=== PATIENT | female | born 1970 | race Caucasian/White ===

== ENCOUNTER → 2017-08-21 | Outpatient (CLI) | payer OTHER ==
--- NOTE | 2017-08-22 02:50 | MR ---
EXAMINATION TYPE: MR knee LT wo con DATE OF EXAM: 08/21/2017 COMPARISON: NONE HISTORY: Left knee pain. TECHNIQUE: Multiplanar, multisequence imaging of the left knee is performed without IV contrast. FINDINGS: There is a [id number] knee joint effusion. The anterior and posterior cruciate ligaments are in tact. There is a 2 cm area of increased signal at the attachment of the posterior cruciate ligament o n the posterior tibia consistent with degenerative cyst formation. The collateral ligaments appear in tact. Joint spaces are fairly normal. There is no evidence of a fracture. There is minor spurring of the lateral femoral and tibial condyles. There is mild horizontal increased signal in the posterior h orn of the medial meniscus without extension to the articular surface. The other menisci appear fairl y normal. CONCLUSION: Moderate knee joint effusion. Intrasubstance tear of the posterior horn medial meniscus. No evidence of ligamentous tear. There is degenerative cyst formation at the base of the posterior tibial spine. IMPRESSION:
== END ==
LOC: MERGE 17:40 → RADMRIMAIN 17:40
PROVIDERS: ATTEND Orthopaedic Surgery
DX: S83.242A Other tear of medial meniscus, current injury, left knee, initial encounter (principal)

== ENCOUNTER → 2017-09-10 | Outpatient (CLI) | payer OTHER ==
[2017-09-10 11:44] LABS: Basophils # (A) 0.1 k/uL (0-0.2); Basophils % (A) 1 %; Eosinophils # (A) 0.2 k/uL (0-0.7); Eosinophils % (A) 2 %; HCT 37.8 % (34.0-46.0); HGB 12.4 gm/dL (11.4-16.0); Lymphocytes # (A) 2.1 k/uL (1.0-4.8); Lymphocytes % (A) 24 %; MCH 28.8 pg (25.0-35.0); MCHC 32.8 g/dL (31.0-37.0); MCV 87.7 fL (80.0-100.0); Monocytes # (A) 0.4 k/uL (0-1.0); Monocytes % (A) 5 %; Neutrophils % (A) 67 %; Platelet Count 265 k/uL (150-450); RBC 4.31 m/uL (3.80-5.40); RDW 13.2 % (11.5-15.5); WBC 8.9 k/uL (3.8-10.6)
[2017-09-10 12:04] LABS: Potassium 3.9 mmol/L (3.5-5.1)
== END | disposition home or self-care (01) ==
LOC: LABPAT 10:56
PROVIDERS: ATTEND Orthopaedic Surgery
DX: Z01.812 Encounter for preprocedural laboratory examination (principal); Z01.818 Encounter for other preprocedural examination; M23.92 Unspecified internal derangement of left knee
CPT/HCPCS: 36415; 80051; 85025; 93005

== ENCOUNTER 2017-09-26 10:34 | Day surgery (SDC) | payer OTHER ==
[2017-09-20 11:49] VITALS: BMI 34.2
--- NOTE | 2017-09-25 16:18 | HP ---
HISTORY AND PHYSICAL DATE OF SURGERY: 09/26/2017 Lawanda Mantlila is a 47-year-old patient seen with progressive left knee pain. We discussed treatment options. She elected to proceed with arthroscopy. Consent was obtained. PAST MEDICAL HISTORY: Noncontributory. PAST SURGICAL HISTORY: Left hand surgery. DAILY MEDICATIONS: Ibuprofen as needed. ALLERGIES: XYLOCAINE AND PENICILLIN. SOCIAL HISTORY: Patient denies tobacco use. PHYSICAL EVALUATION OF LEFT KNEE: Range of motion 0 to 115 degrees. Mild effusion. Tenderness, medial and lateral joint line. Positive medial Gurwinder's. Positive lateral Gurwinder's. Crepitus in patellofemoral joint with range of motion. Ligaments stable. Hip rotation without pain. Distal neurovascular exam intact. RADIOGRAPHS: Radiographs of the left knee revealed mild medial and lateral compartment osteoarthritis as well as moderate patellofemoral compartment osteoarthritis. An MRI of the left knee revealed medial meniscal tear, osteoarthritis and joint effusion. IMPRESSION: Internal derangement of left knee with meniscal tear. PLAN: Left knee arthroscopy with partial meniscectomy and debridement. MMODL / IJN: [id number] /
[~2017-09-26 10:34] MED LIST: DEXAMETHASONE SOD PHOSPHATE 10 MG/ML 1 ML VIAL IV ONE; LACTATED RINGERS 1,000 ML IV SCH; ONDANSETRON 4 MG/2 ML VIAL IVP ONE
[2017-09-26] MEDS ORDERED: LIDOCAINE 1% 20 ML VIAL (10MG/ML) FOR IV START INTRADERMA ONE (12:04)
[2017-09-26] MEDS ORDERED: SUCCINYLCHOLINE CHLORIDE 100 MG/5 ML SYR IV ONE (12:34)
[2017-09-26] MEDS ORDERED: LIDOCAINE 1% INJ 10MG/ML (20 ML MDV) ONE (12:34)
[2017-09-26] MEDS ORDERED: PROPOFOL 10 MG/ML 20 ML VIAL IV ONE (12:34)
[2017-09-26] MEDS ORDERED: fentaNYL (PF) 50 MCG/ML 2 ML AMP ONE (12:34)
[2017-09-26] MEDS ORDERED: HYDROmorphone (PF) 1 MG/ML ONE (12:34)
[2017-09-26] MEDS ORDERED: MIDAZOLAM 2 MG/2 ML VIAL ONE (12:34)
[2017-09-26] MEDS ORDERED: BUPIVACAINE (PF) 0.5% 30 ML VIAL SQ ONE ×2 (12:51→13:10)
--- NOTE | 2017-09-26 13:28 | P.OP ---
Date of Procedure: 09/26/17 Preoperative Diagnosis: Internal derangement left knee Postoperative Diagnosis: 1. Tear medial and lateral meniscus left knee 2. 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 Grade 3/4 chondromalacia patella left knee 4. Grade 4 chondromalacia femoral sulcus left knee 5. Reactive synovitis medial and super patellar compartments left knee Procedure(s) Performed: 1. Arthroscopic partial medial and lateral meniscectomy left knee 2. Arthroscopic chondroplasty medial femoral condyle left knee 3. Arthroscopic chondroplasty patellofemoral joint left knee 4. Arthroscopic partial synovectomy medial and suprapatellar compartments left knee Implants: none Anesthesia: MARBELLAA, local Surgeon: Andry Henderson Estimated Blood Loss (ml): 8 Pathology: none sent Condition: stable Disposition: PACU Indications for Procedure: 47-year-old patient seen with progressive left knee pain. After treatment options were discussed, she elected to proceed with arthroscopy. Operative Findings: See description of procedure Description of Procedure: Patient was taken to the operative suite. Patient underwent a general anesthetic by the department of anesthesia. Patient was given preoperative antibiotics. The left lower extremity was placed in a well-padded arthroscopic leg rutledge. The left leg was prepped and draped in the normal sterile orthopedic fashion. A lateral parapatellar and suprapatellar incision was made. Trochars were inserted. Arthroscopy was initiated. Suprapatellar pouch revealed diffuse thick reactive synovitis. The patellofemoral joint appeared to articulate congruently. There was grade 3/4 chondromalacia of the patella with osteochondral tears and grade 4 chondromalacia of the medial femoral condyle with large areas of exposed bone present.. The scope was guided into the medial gutter. No loose bodies or plica were identified. The scope was then guided into the medial compartment. A medial parapatellar incision was made. Trocar inserted followed by probe. There was a radial tear involving the anterior horn of the medial meniscus as well as a radial tear involving the posterior horn of the medial meniscus. There was reactive synovitis anteriorly. There was an area of grade 1 chondromalacia medial femoral condyle small osteochondral tears present.. There was reactive synovitis anteriorly. I performed a partial medial meniscectomy getting down to stable tissue. I performed a chondroplasty of the medial femoral condyle. I performed a partial synovectomy. The residual meniscus was stable. The residual osteochondral surface of the medial femoral condyle was stable. Scope and probe were then guided into the intercondylar notch. Cruciates were identified, probed and found to be stable. The scope and probe were then guided into lateral compartment. There was a radial tear midbody lateral meniscus. Grade 1 chondromalacia changes lateral compartment with no osteochondral tears. No loose bodies or reactive synovitis. I performed a partial lateral meniscectomy down to stable tissue. The residual meniscus was probed and found to be stable. The scope was in guided back into the suprapatellar compartment. I introduced a motorized shaver into the suprapatellar compartment. I performed a chondroplasty of the patella gained down to stable tissue. I performed a partial synovectomy. The shaver was removed. I took one more look on the entire knee, no residual debris. Instruments were now removed from the joint. The joint was infiltrated with .25% Marcaine. Steri-Strips were applied to the portal sites. Sterile dressings were applied. The patient was placed into a JC hose. No tourniquet was utilized. The patient was awakened, transferred to a bed and taken to recovery stable satisfactory condition.
[2017-09-26 13:32] VITALS: TEMP 97.7
[2017-09-26 13:33] VITALS: RESP 16
[2017-09-26] MEDS: HYDROmorphone 0.5 MG/0.5 ML SYRINGE IVP PRN ×2 (13:47→13:53)
[2017-09-26] MEDS ORDERED: KETOROLAC 30 MG/ML 1 ML VIAL IVP ONE (14:05)
[2017-09-26] MEDS ORDERED: LACTATED RINGERS 1,000 ML IV ONE (14:20)
[2017-09-26] MEDS ORDERED: HYDROcodone/APAP 7.5-325MG 1 EACH TAB PO ONE (14:49)
[2017-09-26 14:54] VITALS: BP 151/86; PULSE 76
[2017-09-27] MEDS ORDERED: ceFAZolin IN SWFI 2 GM/20 ML SYRINGE IVP ONE (06:00)
== END 2017-09-26 15:16 | disposition home or self-care (01) ==
LOC: OR 10:34
PROVIDERS: ATTEND Orthopaedic Surgery
DX: S83.242A Other tear of medial meniscus, current injury, left knee, initial encounter (principal); S83.282A Other tear of lateral meniscus, current injury, left knee, initial encounter; X58.XXXA Exposure to other specified factors, initial encounter; M94.262 Chondromalacia, left knee; M22.42 Chondromalacia patellae, left knee; M65.862 Other synovitis and tenosynovitis, left lower leg; M17.12 Unilateral primary osteoarthritis, left knee; M25.462 Effusion, left knee; Z79.3 Long term (current) use of hormonal contraceptives; Z79.51 Long term (current) use of inhaled steroids; Z88.4 Allergy status to anesthetic agent; Z88.0 Allergy status to penicillin
CPT/HCPCS: 81025; 29880; J2250; J1100; J2405; J2001; J3010; J1885; J1170 ×2; J0330; J2704; J0690

== ENCOUNTER → 2018-07-25 | Outpatient (CLI) | payer OTHER ==
[2018-07-25 11:17] LABS: Basophils # (A) 0.1 k/uL (0-0.2); Basophils % (A) 1 %; Eosinophils # (A) 0.1 k/uL (0-0.7); Eosinophils % (A) 1 %; HCT 40.5 % (34.0-46.0); HGB 12.8 gm/dL (11.4-16.0); Lymphocytes # (A) 1.9 k/uL (1.0-4.8); Lymphocytes % (A) 17 %; MCH 27.6 pg (25.0-35.0); MCHC 31.7 g/dL (31.0-37.0); MCV 87.2 fL (80.0-100.0); Mean Platelet Volume 6.9; Monocytes # (A) 0.4 k/uL (0-1.0); Monocytes % (A) 4 %; Neutrophils # (A) 8.2 k/uL (1.3-7.7); Neutrophils % (A) 75 %; Platelet Count 272 k/uL (150-450); RBC 4.65 m/uL (3.80-5.40); RDW 13.4 % (11.5-15.5); WBC 10.9 k/uL (3.8-10.6)
[2018-07-25 16:50] LABS: Albumin 4.8 g/dL (3.80-4.90); Albumin/Globulin Ratio 2.18 (1.60-3.17); Calcium 9.7 mg/dL (8.7-10.3); Globulin 2.2 g/dL (1.6-3.3); Potassium 3.9 mmol/L (3.5-5.5); Total Bilirubin 0.5 mg/dL (0.3-1.2)
== END ==
LOC: LABWHC1 09:35
PROVIDERS: ATTEND Family Medicine
DX: E78.5 Hyperlipidemia, unspecified (principal)
CPT/HCPCS: 36415; 80053; 80061; 85025

== ENCOUNTER → 2018-09-20 | Outpatient (CLI) | payer OTHER ==
--- NOTE | 2018-09-21 17:03 | MR ---
EXAMINATION TYPE: MR lumbar spine wo con DATE OF EXAM: 09/20/2018 COMPARISON: NONE HISTORY: Low back pain, disc degeneration, and radiculopathy all per order. Low back pain causing claudette n and swelling into right leg per patient. TECHNIQUE: Multiplanar, multisequence imaging of the lumbar spine is performed without IV contrast. FINDINGS: Sagittal images of the lumbar spine show vertebral body heights and alignment to appear sat isfactory. Disc desiccation L4-L5 and L5-S1 levels with posterior disc herniations as present on sagi ttal images. The conus medullaris is normal in position and signal ending mid L1 level. Hemangioma a t the L4 vertebral body level noted sagittal image 9 with smaller hemangioma seen at posterior L3 minerva tebral body level. Axial images show the T12-L1 and L1-L2 levels appear within normal limits. Axial images at L2-L3 level show mild facet degenerative changes bilaterally with mild broad disc bul ge minimally effaces the anterior thecal sac. Axial images at the L3-L4 level are within normal limits. Axial images at L4-L5 level show annular tear with mild to moderate central disc protrusion effacing the anterior thecal sac on axial image 8. There is mild bilateral anterior inferior neural foraminal narrowing. Axial images at the L5-S1 level mild right greater than left facet degenerative changes. There is blanca tral disc protrusion without spinal canal is preserved. There is mild to moderate left greater than r ight bilateral neural foraminal narrowing noted. Few scattered diverticula are seen in the sigmoid colon left lower quadrant axial image 7 for referen ce. IMPRESSION: Some multilevel degenerative changes most prominent L4-L5 level as detailed above.
== END | disposition home or self-care (01) ==
LOC: RADMRIMAIN 12:30
PROVIDERS: ATTEND Orthopaedic Surgery Orthopaedic Surgery of the Spine
DX: M47.26 Other spondylosis with radiculopathy, lumbar region (principal)
CPT/HCPCS: 72148

== ENCOUNTER → 2018-12-27 | Outpatient (CLI) | payer OTHER ==
--- NOTE | 2018-12-27 17:15 | MR ---
EXAMINATION TYPE: MR cervical spine wo con DATE OF EXAM: 12/27/2018 COMPARISON: None HISTORY: Cervical myelopathy / Neck pain TECHNIQUE: Multiplanar, multisequence images of the cervical spine were acquired. Cervical vertebra have normal alignment. Posterior elements are intact. Disc spaces are fairly normal . Cervical spinal cord has normal signal pattern. There is no edema. Brainstem appears normal. There is no spinal stenosis. There are small posterior disc bulges at C5-6 and C6-7 without impingement on the spinal cord. There is no cervical paraspinal mass. Facet joints appear intact. IMPRESSION: Minor posterior disc bulging in the lower cervical spine. No spinal stenosis. Cervical spinal cord ap pears normal. No evidence of cord mass or cord edema.
== END | disposition home or self-care (01) ==
LOC: RADMRIMAIN 12:43
PROVIDERS: ATTEND Orthopaedic Surgery Orthopaedic Surgery of the Spine
DX: M50.022 Cervical disc disorder at C5-C6 level with myelopathy (principal); M54.16 Radiculopathy, lumbar region; M51.26 Other intervertebral disc displacement, lumbar region; M51.36 Other intervertebral disc degeneration, lumbar region
CPT/HCPCS: 72141

== ENCOUNTER → 2018-12-30 | Outpatient (CLI) | payer OTHER ==
--- NOTE | 2018-12-30 16:44 | US ---
EXAMINATION TYPE: US venous doppler duplex LE RT DATE OF EXAM: 12/30/2018 4:25 PM COMPARISON: NONE CLINICAL HISTORY: 48-year-old female I80.9 Phlebitis and thrombophlebitis of unspecified. Patient c/o right thigh swelling x months; walks 7 miles daily; spine surgery for herniated discs SIDE PERFORMED: Right TECHNIQUE: The lower extremity deep venous system is examined utilizing real time linear array sonog jay with graded compression, doppler sonography and color-flow sonography. FINDINGS: VESSELS IMAGED: Common Femoral Vein Deep Femoral Vein Greater Saphenous Vein * Femoral Vein Popliteal Vein Small Saphenous Vein * Proximal Calf Veins (* superficial vessels) Right Leg: Negative for DVT IMPRESSION: No evidence for DVT within the right lower extremity imaged from the groin to the upper calf.
== END | disposition home or self-care (01) ==
LOC: RADUSWWP 15:53
PROVIDERS: ATTEND Orthopaedic Surgery Orthopaedic Surgery of the Spine
DX: M79.661 Pain in right lower leg (principal); M25.561 Pain in right knee; M54.16 Radiculopathy, lumbar region; M47.12 Other spondylosis with myelopathy, cervical region

== ENCOUNTER → 2023-03-08 | Outpatient (CLI) | payer OTHER ==
[2023-03-08 19:01] LABS: HCT 38.5 % (37.2-46.3); HGB 12.3 g/dL (12.0-15.0); MCH 30.9 pg (27.0-32.0); MCHC 31.9 g/dL (32.0-37.0); MCV 96.7 FL (80.0-97.0); Mean Platelet Volume 10.1 FL (9.5-12.2); NRBC Per 100 WBC 0 X 10*3/uL (0.00-0.01); Platelet Count 270 X 10*3/uL (140-440); RBC 3.98 X 10*6/uL (4.10-5.20); RDW 13.5 % (11.5-14.5); WBC 6.03 X 10*3/uL (4.50-10.00)
[2023-03-08 19:02] LABS: Basophils # (A) 0.05 X 10*3/uL (0.00-0.10); Basophils % (A) 0.8 %; Eosinophils # (A) 0.23 X 10*3/uL (0.04-0.35); Eosinophils % (A) 3.8 %; Lymphocytes # (A) 1.94 X 10*3/uL (0.90-5.00); Lymphocytes % (A) 32.2 %; Monocytes # (A) 0.53 X 10*3/uL (0.20-1.00); Monocytes % (A) 8.8 %; Neutrophils # (A) 3.26 X 10*3/uL (1.80-7.70); Neutrophils % (A) 54.1 %
[2023-03-08 20:04] LABS: ALT 34 U/L (8-44); AST 31 U/L (13-35); Albumin 4.1 g/dL (3.8-4.9); Albumin/Globulin Ratio 1.86 Ratio (1.60-3.17); Alkaline Phosphatase 64 U/L (41-126); BUN/Creat Ratio 25.17 Ratio (12.00-20.00); Blood Urea Nitrogen 15.1 mg/dL (9.0-27.0); Calcium 9.2 mg/dL (8.7-10.3); Carbon Dioxide 23.6 mmol/L (21.6-31.8); Chloride 107 mmol/L (96-109); Chol/HDL Ratio 2.76 Ratio; Globulin 2.2 g/dL (1.6-3.3); Glucose 86 mg/dL (70-110); LDL Cholesterol,Calculated 108.3 mg/dL (0.0-131.0); Potassium 4.6 mmol/L (3.5-5.5); Sodium 140 mmol/L (135-145); Total Bilirubin 0.4 mg/dL (0.3-1.2); Total Protein 6.3 g/dL (6.2-8.2); VLDL Calculation 9.64 mg/dL (5.00-40.00)
== END | disposition home or self-care (01) ==
LOC: LABWHC1 10:37
PROVIDERS: ATTEND Family Medicine
DX: I10 Essential (primary) hypertension (principal)
CPT/HCPCS: 36415; 80053; 80061; 82306; 84443; 85025

== ENCOUNTER → 2023-03-18 | Outpatient (CLI) | payer OTHER ==
--- NOTE | 2023-03-19 21:21 | MM ---
Reason for Exam: Screening (asymptomatic). Last mammogram was performed 3 year(s) and 4 month(s) ago. Patient History: Menarche at age 13. Patient has no children. Hysterectomy at age 49. Risk Values: Cyndee 5 year model risk: 1.2%. NCI Lifetime model risk: 9.6%. Prior Study Comparison: 10/19/2016 Bilateral MG 3D screening mammo w/cad, [facility]. 02/07/2018 Bilateral MG 3D screening mammo w/cad, [facility]. 11/23/2019 Bilateral MG 3D screening mammo w/cad, [facility]. Tissue Density: The breast tissue is almost entirely fat. Findings: Analyzed By CAD. There is no suspicious group of microcalcifications or new suspicious mass in either breast. Overall Assessment: Negative, BI-RAD 1 Management: Screening Mammogram of both breasts in 1 year. . Patient should continue monthly self-breast exams. A clinical breast exam by your physician is recommended on an annual basis. This exam should not preclude additional follow-up of suspicious palpable abnormalities. Note on Cyndee scores and lifetime risk: 1. A Cyndee score greater than 3% is considered moderate risk. If this is the case, consider specialist referral to assess eligibility for a risk reducing agent. 2. If overall lifetime risk for the development of breast cancer is 20% or higher, the patient may qualify for future screening with alternating mammogram and breast MRI. Electronically signed and approved by: Alyssa Ennis M.D. Radiologist
== END | disposition home or self-care (01) ==
LOC: RADMAMWWP 15:31
PROVIDERS: ATTEND Family Medicine
DX: Z12.31 Encounter for screening mammogram for malignant neoplasm of breast (principal)
CPT/HCPCS: 77063; 77067

== ENCOUNTER → 2023-08-26 | Outpatient (CLI) | payer OTHER ==
[2023-08-26 12:31] LABS: African American GFR (CKD) >90 (>60 ml/min/1.73 sqM); Blood Urea Nitrogen 24 mg/dL (7-17); Non-African American GFR(CKD) >90 (>60 ml/min/1.73 sqM)
[2023-08-26 21:39] LABS: Follicle Stimulating Hormone 33.8 mIU/mL
--- NOTE | 2023-08-29 06:21 | CT ---
EXAMINATION TYPE: CT abdomen pelvis w con DATE OF EXAM: 08/26/2023 HISTORY: LLQ pain, hx of hysterectomy CT DLP: 1749mGycm Automated Exposure Control for Dose Reduction was Utilized. CONTRAST: CT scan of the abdomen and pelvis is performed with oral and with IV Contrast, patient injected with 100ml mL of Isovue 300. COMPARISON: None. FINDINGS: LUNG BASES: No significant abnormality is appreciated. LIVER/GB: Small 9 mm dependent gallstone axial image 22. Gallbladder shows no surrounding ill-defined fluid or fat stranding. No biliary dilatation. PANCREAS: No significant abnormality is seen. SPLEEN: No significant abnormality is seen. ADRENALS: No significant abnormality is seen. KIDNEYS: No significant abnormality is seen. BOWEL: Normal contrast-filled appendix. Oral contrast reaches the level of the hepatic flexure. No ab normal small or large bowel dilatation. Some diverticula in the left and sigmoid colon. No CT evidenc e for acute diverticulitis. UTERUS/ADNEXA: Uterus is surgically absent. LYMPH NODES: No greater than 1cm abdominal or pelvic lymph nodes are appreciated. OSSEOUS STRUCTURES: Vacuum disc phenomenon with mild to moderate disc space narrowing at the lumbosac ral junction. Multilevel spurring in the thoracolumbar spine. Multilevel facet arthropathy. OTHER: No significant additional abnormality is seen. IMPRESSION: Distal colonic diverticula. No CT evidence for acute diverticulitis. No acute findings se en to account for the patient's symptoms of left lower quadrant abdominal pain.
== END | disposition home or self-care (01) ==
LOC: RADCTMAIN 11:40
PROVIDERS: ATTEND Family Medicine
DX: K57.30 Diverticulosis of large intestine without perforation or abscess without bleeding (principal); Z78.0 Asymptomatic menopausal state; Z90.710 Acquired absence of both cervix and uterus
CPT/HCPCS: 83001; 82565; 84520; 74177; 36415; Q9967

== ENCOUNTER 2023-11-15 11:30 | Day surgery (SDC) | payer OTHER ==
[~2023-11-15 11:30] MED LIST changes: -DEXAMETHASONE SOD PHOSPHATE 10 MG/ML 1 ML VIAL IV ONE; +LACTATED RINGERS 1,000 ML BAG ONE; -LACTATED RINGERS 1,000 ML IV SCH; -ONDANSETRON 4 MG/2 ML VIAL IVP ONE
[2023-11-15] MEDS ORDERED: PROPOFOL 10 MG/ML 20 ML VIAL IV ONE (11:41)
--- NOTE | 2023-12-06 17:10 | P.PCN ---
Date of Procedure: 11/15/23 Procedure(s) Performed: This an addendum to the procedure was performed on 11/15/2023. Procedure performed colonoscopy Procedure: Scope was advanced into the cecum. Careful examination was performed. Left-sided diverticulosis seen. Patient tolerated the procedure well
== END 2023-11-15 12:32 ==
LOC: ORWHC2ENDO 11:30
PROVIDERS: ATTEND Internal Medicine Gastroenterology
DX: R10.32 Left lower quadrant pain
CPT/HCPCS: 45378

== ENCOUNTER → 2024-07-17 | Outpatient (CLI) | payer BC ==
[2024-07-18 03:04] LABS: BUN/Creat Ratio 24.67 Ratio (12.00-20.00); Blood Urea Nitrogen 14.8 mg/dL (9.0-27.0); Calcium 9.6 mg/dL (8.7-10.3); Carbon Dioxide 23.9 mmol/L (21.6-31.8); Chloride 111 mmol/L (96-109); Glucose 94 mg/dL (70-110); Potassium 4.1 mmol/L (3.5-5.5); Sodium 149 mmol/L (135-145)
== END | disposition home or self-care (01) ==
LOC: LABWHC1 15:35
PROVIDERS: ATTEND Family Medicine
DX: I10 Essential (primary) hypertension (principal)
CPT/HCPCS: 36415; 80048; 84443